=== PATIENT | male | born 1965 | race American Indian/Alaskan Native ===

== ENCOUNTER 2021-06-27 09:32 | Inpatient (IN) | payer SELFPAY ==
--- NOTE | 2021-06-27 09:46 | Emergency Department Report ---
ED Neuro Deficit HPI - General Stated Complaint: LEFT SIDED WEAKDNESS Time Seen by Provider: 06/27/21 09:38 Source: patient, EMS Mode of arrival: Stretcher Limitations: No Limitations - History of Present Illness Initial Comments: CC: left facial droop, left arm weakness HPI: This is a 55 yo male without significant past medical history who presents with left facial droop and left arm weakness. Patient recalls getting to up at 3 am to use the bathroom. He awakened at 6 am with weakness. He had difficulty getting out of bed. He noticed left arm weakness at that time. Patient arrived via EMS. CODE stroke activated prior to patient' arrival once EMS report received. Systolic blood pressure 191 mmHg via EMS. Patient is right hand dominant. No history of HTN. He has not received medical care in quite some time. No significant family medical history. His father lived until his 80's without significant medical illness. Patient moved from [facility] to the in 2002. 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 -: This afternoon Location: left face, left arm Presenting Symptoms: Present: Weak/Paralyzed One Side, Altered Mental Status Place: home Severity: moderate Quality: weak Improves With: none Worsens With: none On Anticoagulants: No Context: other (Awakened with symptoms) Associated Symptoms: denies other symptoms Treatments Prior to Arrival: other (EMS transport) - Related Data Home Medications: Previous Rx's Medication Instructions Recorded Last Taken Type Cyclobenzaprine [Flexeril] 10 mg PO TID PRN #20 tablet 11/17/15 Unknown Rx Ibuprofen [Motrin 800 MG tab] 800 mg PO Q8HR PRN #30 tablet 11/17/15 Unknown Rx Allergies/Adverse Reactions: Allergies Allergy/AdvReac Type Severity Reaction Status Date / Time No Known Allergies Allergy Verified 11/16/15 12:24 ED Review of Systems ROS: Stated complaint: LEFT SIDED WEAKDNESS Other details as noted in HPI Comment: All other systems reviewed and negative Constitutional: denies: chills, fever, malaise Respiratory: denies: cough, shortness of breath Cardiovascular: denies: chest pain Gastrointestinal: denies: abdominal pain, nausea, vomiting Neurological: denies: headache, weakness, numbness ED Past Medical Hx - Past Medical History Previous Medical History?: No - Surgical History Past Surgical History?: No - Family History Family history: no significant - Social History Smoking Status: Never Smoker Substance Use Type: Alcohol, Other - Medications Home Medications: Home Medications Medication Instructions Recorded Confirmed Last Taken Type Cyclobenzaprine [Flexeril] 10 mg PO TID PRN #20 tablet 11/17/15 Unknown Rx Ibuprofen [Motrin 800 MG tab] 800 mg PO Q8HR PRN #30 tablet 11/17/15 Unknown Rx ED Neuro Physical Exam - General Limitations: No Limitations General appearance: alert, in no apparent distress Suspected Stroke: Yes - Head Head exam: Present: atraumatic, normocephalic - Eye Eye exam: Present: normal appearance - ENT ENT exam: Present: mucous membranes moist - Neck Neck exam: Present: normal inspection, full ROM - Respiratory Respiratory exam: Present: normal lung sounds bilaterally. Absent: respiratory distress, wheezes, rales, rhonchi - Cardiovascular Cardiovascular Exam: Present: regular rate, normal rhythm, normal heart sounds. Absent: systolic murmur, diastolic murmur, rubs, gallop - GI/Abdominal GI/Abdominal exam: Present: soft, normal bowel sounds. Absent: distended, tenderness, guarding, rebound - Rectal Rectal exam: Present: deferred - Extremities Exam Extremities exam: Present: normal inspection - Back Exam Back exam: Present: normal inspection - Neurological Exam Neurological exam: Present: alert, oriented X3 - NIHSS Assessment Interval: Baseline 1a. Level of Consciousness: alert/keenly responsive 1b. LOC Questions: answers both correctly 1c. LOC Commands: performs tasks correctly 2. Best Gaze: normal 3. Visual: partial hemianopia 4. Facial Palsy: normal symmetrical movement 5b. Motor Arm Right: no drift 5a. Motor Arm Left: some gravity effort 6a. Motor Leg Left: no drift 6b. Motor Leg Right: no drift 7. Limb Ataxia: absent 8. Sensory: normal 9. Best Language: no aphasia 10. Dysarthria: normal 11. Extinction/Inattention: no abnormality Total Score: 3 Stroke Severity: Minor Stroke - Psychiatric Psychiatric exam: Present: normal affect, normal mood - Skin Skin exam: Present: warm, dry, intact, normal color. Absent: rash ED Course Vital Signs 06/27/21 06/27/21 06/27/21 11:06 11:16 11:30 Pulse Rate 83 85 81 Respiratory 21 17 16 Rate Blood Pressure 157/94 157/101 O2 Sat by Pulse 94 100 100 Oximetry 06/27/21 06/27/21 06/27/21 11:46 12:00 12:16 Pulse Rate 90 86 77 Respiratory 14 19 12 Rate Blood Pressure 157/101 156/107 156/107 O2 Sat by Pulse 100 97 100 Oximetry 06/27/21 12:30 Pulse Rate 81 Respiratory 25 H Rate Blood Pressure 157/112 O2 Sat by Pulse 100 Oximetry - Reevaluation(s) Reevaluation #1: 06/27/21 09:53 I discussed case with neurologist. He agreed that last known well time 3 AM. He has not a candidate for TPA. - Lab Data Result diagrams: 06/27/21 10:06 06/27/21 10:06 Lab Results 06/27/21 06/27/21 06/27/21 Range/Units 10:06 10:06 11:05 WBC 4.9 (4.5-11.0) K/mm3 RBC 4.74 (3.65-5.03) M/mm3 Hgb 11.7 L (11.8-15.2) gm/dl Hct 36.9 (35.5-45.6) % MCV 78 L (84-94) fl MCH 25 L (28-32) pg MCHC 32 (32-34) % RDW 14.6 (13.2-15.2) % Plt Count 198 (140-440) K/mm3 Lymph % (Auto) 28.8 (13.4-35.0) % Divide % (Auto) 7.1 (0.0-7.3) % Eos % (Auto) 0.8 (0.0-4.3) % Baso % (Auto) 0.8 (0.0-1.8) % Lymph # (Auto) 1.4 (1.2-5.4) K/mm3 Divide # (Auto) 0.4 (0.0-0.8) K/mm3 Eos # (Auto) 0.0 (0.0-0.4) K/mm3 Baso # (Auto) 0.0 (0.0-0.1) K/mm3 Seg Neutrophils % 62.5 (40.0-70.0) % Seg Neutrophils # 3.1 (1.8-7.7) K/mm3 PT 13.1 (12.2-14.9) Sec. INR 0.89 (0.87-1.13) APTT 25.8 (24.2-36.6) Sec. Thrombin Time 18.6 (15.1-19.6) Sec. Sodium 138 (137-145) mmol/L Potassium 3.6 (3.6-5.0) mmol/L Chloride 102.8 (98-107) mmol/L Carbon Dioxide 25 (22-30) mmol/L Anion Gap 14 mmol/L BUN 12 (9-20) mg/dL Creatinine 1.2 (0.8-1.3) mg/dL Estimated GFR > 60 ml/min BUN/Creatinine Ratio 10 % Glucose 138 H (75-100) mg/dL Calcium 8.5 (8.4-10.2) mg/dL Total Bilirubin 0.40 (0.1-1.2) mg/dL AST 19 (5-40) units/L ALT 26 (7-56) units/L Alkaline Phosphatase 85 (35-129) units/L Troponin T < 0.010 (0.00-0.029) ng/mL NT-Pro-B Natriuret Pep 46.41 (0-900) pg/mL Total Protein 7.0 (6.3-8.2) g/dL Albumin 3.9 (3.9-5) g/dL Albumin/Globulin Ratio 1.3 % - EKG Data -: EKG Interpreted by Nm EKG shows normal: sinus rhythm Rate: normal Interpretation: nonspecific ST-T wave elissa 06/27/21 11:00 EKG obtained 1020 Normal sinus rhythm rate 85 bpm normal axis normal intervals no ST elevation T wave inversion in the lateral leads - Radiology Data Radiology results: report reviewed Patient Name: DELIA BABB Gender: Male Date of : January 20, 1961 Referring Provider: FRANCISCO HYDE Organization: [facility] Accession Number: [id number] Requested Date: June 27, 2021 08:42 Report Status: Final Requested Procedure: 1 Procedure Description: XR chest 1V ap Modality: XR Findings Reporting MD: Alek Darden Dictation Time: June 27, 2021 08:45 Tuber Machine Operator: Not available Territory Outside Sales Manager Date: CHEST 1 VIEW 06/27/2021 9:29 AM INDICATION / CLINICAL INFORMATION: Chest Pain. COMPARISON: 06/15/2021 FINDINGS: SUPPORT DEVICES: None. HEART / MEDIASTINUM: Stable cardiomegaly. LUNGS / PLEURA: Bilateral interstitial prominence and perihilar fullness. Essence B lines. No pneumothorax. ADDITIONAL FINDINGS: No significant additional findings. IMPRESSION: 1. Cardiomegaly and pulmonary edema. Signer Name: Alek Darden MD Signed: 06/27/2021 8:45 AM Workstation Name: [id number] Patient Name: YURY STERLING Gender: Male Date of : 1965 Referring Provider: FRANCISCO HYDE Organization: [facility] Accession Number: [id number] Requested Date: June 27, 2021 09:39 Report Status: Final Requested Procedure: 1 Procedure Description: CT head/brain wo con Modality: CT Findings Reporting MD: Marcin He Dictation Time: June 27, 2021 09:24 Tuber Machine Operator: Not available Territory Outside Sales Manager Date: CT BRAIN: 06/27/2021 INDICATION / CLINICAL INFORMATION: Left facial droop left arm weakness. COMPARISON: None available. FINDINGS: BRAIN/INTRACRANIAL STRUCTURES: Unenhanced CT images of the brain demonstrate no evidence of acute abnormality. Ventricles and sulci are normal in size and shape. There is no CT evidence of acute ischemic injury, hemorrhage, or mass. There are no abnormal extra-axial fluid collections. EXTRACRANIAL STRUCTURES: Unremarkable. IMPRESSION: No acute abnormality All CT scans at this location are performed using dose reduction to ALARA by means of automated exposure control. Signer Name: Marcin He MD Signed: 06/27/2021 9:24 AM Workstation Name: [id number] Patient Name: YURY STERLING Gender: Male Date of : 1965 Referring Provider: FRANCISCO HYDE Organization: [facility] Accession Number: [id number] Requested Date: June 27, 2021 09:39 Report Status: Final Requested Procedure: 1 Procedure Description: CT angio neck Modality: CT Findings Reporting MD: Marcin He Dictation Time: June 27, 2021 09:27 Tuber Machine Operator: Not available Territory Outside Sales Manager Date: CTA NECK WITH CONTRAST 06/27/2021 INDICATION / CLINICAL INFORMATION: Left facial droop left arm weakness. COMPARISON: None. TECHNIQUE: Routine CTA of the neck is performed. 3-D/MIP reformats were postprocessed. Percentage stenosis is determined by direct quantitative measurements of diseased internal carotid artery diameter compared with normal distal internal carotid artery reference segments or by criteria similar to NASCET where applicable. All CT scans at this location are performed using CT dose reduction for ALARA by means of automated exposure control. CONTRAST: 100 ml of Omnipaque 350 FINDINGS: Carotid bifurcations: There is no evidence of carotid bifurcation stenosis. Carotid arteries: No significant abnormality. Cervical vertebral arteries: No significant abnormality. Aortic arch: No significant abnormality. None. IMPRESSION: No significant abnormality. No CT angiographic correlate for left facial droop and left arm weakness. Signer Name: Marcin He MD Signed: 06/27/2021 9:27 AM Workstation Name: [id number] Patient Name: YURY STERLING Gender: Male Date of : 1965 Referring Provider: FRANCISCO HYDE Organization: [facility] Accession Number: [id number] Requested Date: June 27, 2021 09:39 Report Status: Final Requested Procedure: 1 Procedure Description: CT angio head Modality: CT Findings Reporting MD: Marcin He Dictation Time: June 27, 2021 09:28 Tuber Machine Operator: Not available Territory Outside Sales Manager Date: CTA HEAD WITH CONTRAST 06/27/2021 HISTORY: Left facial droop left arm weakness. COMPARISON: None. TECHNIQUE: All CT scans at this location are performed using CT dose reduction for ALARA by means of automated exposure control.. 3-D/MIP reformats postprocessed. Percentage stenosis is determined by direct quantitative measurements of diseased internal carotid artery diameter compared with normal distal internal carotid artery reference segments or by criteria similar to NASCET where applicable. CONTRAST: 100 ml of Omnipaque 350 FINDINGS: CTA HEAD: Intracranial vertebral arteries: No significant abnormality. Basilar artery: No significant abnormality. Posterior cerebral arteries: No significant abnormality. Intracranial internal carotid arteries: No significant abnormality. Anterior cerebral arteries: No significant abnormality. Middle cerebral arteries: No significant abnormality. Dural venous sinuses:Not optimally opacified. No significant abnormality. Additional findings: None. IMPRESSION: 1. No significant abnormality. Signer Name: Marcin He MD Signed: 06/27/2021 9:28 AM Workstation Name: [email or web address] - Medical Decision Making Acute CVA: Patient is not a candidate for TPA. Last known well time 3 AM. NIH stroke scale 3 No evidence of large vessel occlusion on CT angio head chest. CBC chemistry within normal limits. Troponin negative. PT PTT within normal limits. BNP within normal limits. Critical care attestation.: If time is entered above; I have spent that time in minutes in the direct care of this critically ill patient, excluding procedure time. ED Disposition Clinical Impression: Acute CVA (cerebrovascular accident) Disposition: ADMITTED INPATIENT Is pt being admited?: Yes Does the pt Need Aspirin: No Condition: Stable
[2021-06-27 10:26] LABS: Basophils % (Auto) 0.8 % (0.0-1.8); Eosinophils % (Auto) 0.8 % (0.0-4.3); Hematocrit 36.9 % (35.5-45.6); Hemoglobin 11.7 gm/dl (11.8-15.2); Lymphocytes # (Auto) 1.4 K/mm3 (1.2-5.4); Lymphocytes % (Auto) 28.8 % (13.4-35.0); Mean Corpuscular HGB Conc 32 % (32-34); Mean Corpuscular Volume 78 fl (84-94); Monocytes # (Auto) 0.4 K/mm3 (0.0-0.8); Monocytes % (Auto) 7.1 % (0.0-7.3); Platelet Count 198 K/mm3 (140-440); Red Blood Count 4.74 M/mm3 (3.65-5.03); Red Cell Distribution Width 14.6 % (13.2-15.2)
--- NOTE | 2021-06-27 10:29 | Cat Scan Report ---
CT BRAIN: 06/27/2021 INDICATION / CLINICAL INFORMATION: Left facial droop left arm weakness. COMPARISON: None available. FINDINGS: BRAIN/INTRACRANIAL STRUCTURES: Unenhanced CT images of the brain demonstrate no evidence of acute abn ormality. Ventricles and sulci are normal in size and shape. There is no CT evidence of acute ischemic injury, hemorrhage, or mass. There are no abnormal extra-ax ial fluid collections. EXTRACRANIAL STRUCTURES: Unremarkable. IMPRESSION: No acute abnormality All CT scans at this location are performed using dose reduction to ALARA by means of automated expos ure control. Signer Name: Marcin He MD Signed: 06/27/2021 10:24 AM Workstation Name: [id number]
--- NOTE | 2021-06-27 10:31 | Cat Scan Report ---
CTA NECK WITH CONTRAST 06/27/2021 INDICATION / CLINICAL INFORMATION: Left facial droop left arm weakness. COMPARISON: None. TECHNIQUE: Routine CTA of the neck is performed. 3-D/MIP reformats were postprocessed. Percentage st enosis is determined by direct quantitative measurements of diseased internal carotid artery diameter compared with normal distal internal carotid artery reference segments or by criteria similar to BROOK CET where applicable. All CT scans at this location are performed using CT dose reduction for ALARA b y means of automated exposure control. CONTRAST: 100 ml of Omnipaque 350 FINDINGS: Carotid bifurcations: There is no evidence of carotid bifurcation stenosis. Carotid arteries: No significant abnormality. Cervical vertebral arteries: No significant abnormality. Aortic arch: No significant abnormality. None. IMPRESSION: No significant abnormality. No CT angiographic correlate for left facial droop and left arm weakness. Signer Name: Marcin He MD Signed: 06/27/2021 10:27 AM Workstation Name: [id number]
--- NOTE | 2021-06-27 10:32 | Cat Scan Report ---
CTA HEAD WITH CONTRAST 06/27/2021 HISTORY: Left facial droop left arm weakness. COMPARISON: None. TECHNIQUE: All CT scans at this location are performed using CT dose reduction for ALARA by means of automated exposure control.. 3-D/MIP reformats postprocessed. Percentage stenosis is determined by d irect quantitative measurements of diseased internal carotid artery diameter compared with normal dis refugio internal carotid artery reference segments or by criteria similar to NASCET where applicable. CONTRAST: 100 ml of Omnipaque 350 FINDINGS: CTA HEAD: Intracranial vertebral arteries: No significant abnormality. Basilar artery: No significant abnormality. Posterior cerebral arteries: No significant abnormality. Intracranial internal carotid arteries: No significant abnormality. Anterior cerebral arteries: No significant abnormality. Middle cerebral arteries: No significant abnormality. Dural venous sinuses:Not optimally opacified. No significant abnormality. Additional findings: None. IMPRESSION: 1. No significant abnormality. Signer Name: Marcin He MD Signed: 06/27/2021 10:28 AM Workstation Name: [id number]
--- NOTE | 2021-06-27 10:42 | Consultation ---
History of Present Illness History of present illness: [facility] Consult Note # Demographics Consult Type: Acute Stroke Level 1 (0-4.5 hrs) Patient Location: Emergency Room First Name: Roni Last Name: Gilbert Date of : 1965 Age: 55 Gender: Female Facility: [facility] Time of Initial Page ( Time): 06/27/2021, 09:17 Time of Return Call ( Time): 06/27/2021, 09:19 # HPI History: 55M presents after fall with speech difficulty and left arm weakness. [id number] when he woke up to use restroom. # Scores Time of exam and NIHSS ( Time): 06/27/2021, 09:42 Level of Consciousness 1a: [0] = Alert; keenly responsive LOC Questions 1b: [0] = Answers both questions correctly LOC Commands 1c: [0] = Performs both tasks correctly Best Gaze 2: [0] = Normal Visual 3: [0] = No visual loss Facial Palsy 4: [0] = Normal symmetrical movements Motor Arm Left 5a: [0] = No drift Motor Arm Right 5b: [0] = No drift Motor Leg Left 6a: [1] = Drift Motor Leg Right 6b: [0] = No drift Limb Ataxia 7: [0] = Absent Sensory 8: [1] = [id number] sensory loss Best Language 9: [0] = No aphasia Dysarthria 10: [0] = Normal Extinction and Inattention 11: [0] = No abnormality NIHSS Total: 2 # Data Head CT: no bleed per radiologist read CTA Head: no large vessel occlusion per radiologist read CTA Neck: patent vessels per radiologist read # Assessment Impression: Ischemic Stroke (Acute) # Plan Thrombolytic/Intervention: NOT IV Thrombolysis or IA Intervention candidate Thrombolytic Exclusion: > 4.5 hours Intraarterial Exclusion: no large vessel occlusion (LVO) non-disabling Target Blood Pressure: SBP < 220 DBP < 105 Labs: hemoglobin A1c lipid panel Imaging: (urgency: routine): MRI Brain without contrast Diagnostic Test: echo with bubble study Therapy/Evaluation: PT/OT evaluation Medication: ASA 325 x1 then 81 daily Plavix 300 x1 then 75 daily x3 weeks (3 weeks DAPT, then ASA monotherapy) Atorvastatin 80, then tailor daily dose to LDL < 70 goal DVT Prophylaxis: SCD chemical DVT prophylaxis Other: consult on-site neurology service for full work-up and evaluation recommendations permissive hypertension telemetry monitoring I have discussed my recommendations with the referring provider Disposition: admit # Logistics Telemedicine: Interactive 2 way audio and visual telecommunication technology was utilized during this visit Electronically signed at 06/27/2021 10:41 (Eastern Time) by J Luis Burch MD Medications and Allergies Allergies Allergy/AdvReac Type Severity Reaction Status Date / Time No Known Allergies Allergy Verified 11/16/15 12:24 Home Medications Medication Instructions Recorded Confirmed Last Taken Type Cyclobenzaprine [Flexeril] 10 mg PO TID PRN #20 tablet 11/17/15 Unknown Rx Ibuprofen [Motrin 800 MG tab] 800 mg PO Q8HR PRN #30 tablet 11/17/15 Unknown Rx Results - Laboratory Findings CBC and BMP: 06/27/21 10:06 Abnormal Lab Findings: Abnormal Labs 06/27/21 10:06 Hgb 11.7 L MCV 78 L MCH 25 L
--- NOTE | 2021-06-27 10:50 | XRay Report ---
CHEST 1 VIEW 06/27/2021 9:36 AM INDICATION / CLINICAL INFORMATION: Stroke symptoms. COMPARISON: None available. FINDINGS: SUPPORT DEVICES: None. HEART / MEDIASTINUM: No significant abnormality. LUNGS / PLEURA: No significant pulmonary or pleural abnormality. No pneumothorax. ADDITIONAL FINDINGS: No significant additional findings. IMPRESSION: 1. No acute findings. Signer Name: Alek Darden MD Signed: 06/27/2021 10:46 AM Workstation Name: [id number]
[2021-06-27 10:59] LABS: Alanine Aminotransferase 26 units/L (7-56); Albumin 3.9 g/dL (3.9-5); BUN/Creatinine Ratio 10; Blood Urea Nitrogen 12 mg/dL (9-20); Calcium 8.5 mg/dL (8.4-10.2); Hemolysis Index 3
[2021-06-27 11:23] LABS: INR 0.89 (0.87-1.13); Partial Thromboplastin Time 25.8 Sec. (24.2-36.6)
[2021-06-27 11:24] LABS: Thrombin Time 18.6 Sec. (15.1-19.6)
[2021-06-27] MEDS ORDERED: ASPIRIN 325 MG TAB PO ONE (14:33)
[2021-06-27] MEDS ORDERED: ACETAMINOPHEN 325 MG TAB PO PRN (17:26)
[2021-06-27] MEDS ORDERED: ONDANSETRON 4 MG/2 ML INJ IV PRN (17:26)
--- NOTE | 2021-06-27 17:26 | History and Physical Report ---
History of Present Illness Date of examination: 06/27/21 Date of admission: 06/27/2019 Chief complaint: Left upper extremity weakness and left lower extremity weakness since 3 AM in the morning History of present illness: 54-year-old male without significant past medical history presents with a left facial droop and left arm weakness. Patient woke up at 3 AM Tried to use the bathroom he had difficulty getting out of bed and walking to the bathroom. Apparently fell while going to the lab since 6 AM patient noted weakness in the left upper extremity and left lower extremity. Patient had difficulty walking. Patient came by EMS and code stroke was activated. Systolic blood pressure was high as per EMS in the range of 190s. No significant past medical history. Has not seen any physician in the last few years. 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 No exacerbating or relieving factors. Past History Past Medical History: hypertension Past Surgical History: No surgical history Social history: lives with family, full code. denies: smoking, alcohol abuse Family history: hypertension Review of Systems ROS: Stated complaint: LEFT SIDED WEAKDNESS Other details as noted in HPI Comment: All other systems reviewed and negative Constitutional: denies: chills, fever, malaise Respiratory: denies: cough, shortness of breath Cardiovascular: denies: chest pain Gastrointestinal: denies: abdominal pain, nausea, vomiting Neurological: denies: headache, weakness, numbness Past History Social history: smoking, alcohol abuse Medications and Allergies Allergies Allergy/AdvReac Type Severity Reaction Status Date / Time No Known Allergies Allergy Verified 11/16/15 12:24 Home Medications Medication Instructions Recorded Confirmed Last Taken Type Cyclobenzaprine [Flexeril] 10 mg PO TID PRN #20 tablet 11/17/15 Unknown Rx Ibuprofen [Motrin 800 MG tab] 800 mg PO Q8HR PRN #30 tablet 11/17/15 Unknown Rx Exam - Constitutional Vitals: Temp Pulse Resp BP Pulse Ox 85 14 151/75 83 L 06/27/21 14:00 06/27/21 14:00 06/27/21 14:00 06/27/21 14:00 General appearance: Present: no acute distress, well-nourished - EENT Eyes: Present: PERRL ENT: hearing intact, clear oral mucosa - Neck Neck: Present: supple, normal ROM - Respiratory Respiratory effort: normal Respiratory: bilateral: CTA - Cardiovascular Heart rate: 78 Rhythm: regular Heart Sounds: Present: S1 & S2. Absent: rub, click - Extremities Extremities: pulses symmetrical, No edema Peripheral Pulses: within normal limits - Abdominal General gastrointestinal: Present: soft, non-tender, non-distended, normal bowel sounds Male genitourinary: Present: normal - Integumentary Integumentary: Present: clear, warm, dry - Musculoskeletal Musculoskeletal: left sided weakness - Psychiatric Psychiatric: appropriate mood/affect, intact judgment & insight, memory intact, cooperative - Neurologic Neurologic: CNII-XII intact (Left facial palsy), focal deficits (Left hemiparesis. Power is 3/5 power in both left upper extremity and left lower extremity.), gait normal (Circumduction gait) HEART Score - HEART Score History: Slightly suspicious Age: 45-65 Risk factors: 1-2 risk factors Troponin: Troponin T < 0.010 ng/mL (0.00-0.029) 06/27/21 10:06 Troponin: < normal limit - Critical Actions Critical Actions: 0-3 pts:0.9-1.7%risk of adverse cardiac event.Candidate for discharge Results - Labs CBC & Chem 7: 06/28/21 05:14 06/28/21 05:14 Labs: Laboratory Last Values WBC 4.9 K/mm3 (4.5-11.0) 06/27/21 10:06 RBC 4.74 M/mm3 (3.65-5.03) 06/27/21 10:06 Hgb 11.7 gm/dl (11.8-15.2) L 06/27/21 10:06 Hct 36.9 % (35.5-45.6) 06/27/21 10:06 MCV 78 fl (84-94) L 06/27/21 10:06 MCH 25 pg (28-32) L 06/27/21 10:06 MCHC 32 % (32-34) 06/27/21 10:06 RDW 14.6 % (13.2-15.2) 06/27/21 10:06 Plt Count 198 K/mm3 (140-440) 06/27/21 10:06 Lymph % (Auto) 28.8 % (13.4-35.0) 06/27/21 10:06 [place] % (Auto) 7.1 % (0.0-7.3) 06/27/21 10:06 Eos % (Auto) 0.8 % (0.0-4.3) 06/27/21 10:06 Baso % (Auto) 0.8 % (0.0-1.8) 06/27/21 10:06 Lymph # (Auto) 1.4 K/mm3 (1.2-5.4) 06/27/21 10:06 [place] # (Auto) 0.4 K/mm3 (0.0-0.8) 06/27/21 10:06 Eos # (Auto) 0.0 K/mm3 (0.0-0.4) 06/27/21 10:06 Baso # (Auto) 0.0 K/mm3 (0.0-0.1) 06/27/21 10:06 Seg Neutrophils % 62.5 % (40.0-70.0) 06/27/21 10:06 Seg Neutrophils # 3.1 K/mm3 (1.8-7.7) 06/27/21 10:06 PT 13.1 Sec. (12.2-14.9) 06/27/21 11:05 INR 0.89 (0.87-1.13) 06/27/21 11:05 APTT 25.8 Sec. (24.2-36.6) 06/27/21 11:05 Thrombin Time 18.6 Sec. (15.1-19.6) 06/27/21 11:05 Sodium 138 mmol/L (137-145) 06/27/21 10:06 Potassium 3.6 mmol/L (3.6-5.0) 06/27/21 10:06 Chloride 102.8 mmol/L (98-107) 06/27/21 10:06 Carbon Dioxide 25 mmol/L (22-30) 06/27/21 10:06 Anion Gap 14 mmol/L 06/27/21 10:06 BUN 12 mg/dL (9-20) 06/27/21 10:06 Creatinine 1.2 mg/dL (0.8-1.3) 06/27/21 10:06 Estimated GFR > 60 ml/min 06/27/21 10:06 BUN/Creatinine Ratio 10 % 06/27/21 10:06 Glucose 138 mg/dL (75-100) H 06/27/21 10:06 Calcium 8.5 mg/dL (8.4-10.2) 06/27/21 10:06 Total Bilirubin 0.40 mg/dL (0.1-1.2) 06/27/21 10:06 AST 19 units/L (5-40) 06/27/21 10:06 ALT 26 units/L (7-56) 06/27/21 10:06 Alkaline Phosphatase 85 units/L (35-129) 06/27/21 10:06 Troponin T < 0.010 ng/mL (0.00-0.029) 06/27/21 10:06 NT-Pro-B Natriuret Pep 46.41 pg/mL (0-900) 06/27/21 10:06 Total Protein 7.0 g/dL (6.3-8.2) 06/27/21 10:06 Albumin 3.9 g/dL (3.9-5) 06/27/21 10:06 Albumin/Globulin Ratio 1.3 % 06/27/21 10:06 Short CBC 06/27/21 06/28/21 Range/Units 10:06 05:14 WBC 4.9 6.2 (4.5-11.0) K/mm3 Hgb 11.7 L 12.7 (11.8-15.2) gm/dl Hct 36.9 40.3 (35.5-45.6) % Plt Count 198 223 (140-440) K/mm3 BMP 06/27/21 06/28/21 10:06 05:14 Sodium 138 143 Potassium 3.6 4.1 Chloride 102.8 106.5 Carbon Dioxide 25 24 BUN 12 11 Creatinine 1.2 1.2 Glucose 138 H 118 H Calcium 8.5 8.8 Cardiac Enzymes 06/27/21 Range/Units 10:06 Troponin T < 0.010 (0.00-0.029) ng/mL Liver Function 06/27/21 06/28/21 Range/Units 10:06 05:14 Total Bilirubin 0.40 0.50 (0.1-1.2) mg/dL AST 19 21 (5-40) units/L ALT 26 26 (7-56) units/L Alkaline Phosphatase 85 89 (35-129) units/L Albumin 3.9 4.0 (3.9-5) g/dL - Imaging and Cardiology EKG: report reviewed (Heart rate of 85/min left atrial enlargement abnormal. T wave inversions in lateral leads) Assessment and Plan Advance Directives: Yes (Full code) VTE prophylaxis?: Chemical Plan of care discussed with patient/family: Yes - Patient Problems (1) Acute CVA (cerebrovascular accident) Current Visit: Yes Status: Acute Plan to address problem: CVA protocol MRI brain and echocardiogram requested Physical therapy and Occupational Therapy requested Neurology consult requested Patient is outside the window for TPA Aspirin 325 mg to be initiated High-dose statins initiated Defer Plavix to the primary team (2) Hypertension Current Visit: Yes Status: Acute Qualifiers: Hypertension type: primary hypertension Qualified Code(s): I10 - Essential (primary) hypertension Plan to address problem: Newly diagnosed hypertension Patient never had hypertension for long time Did not seek any medical attention for the last few years Patient initiated on losartan and Coreg IV hydralazine as needed (3) Hyperglycemia Current Visit: Yes Status: Acute Plan to address problem: Borderline Check hemoglobin A1c Metformin if necessary (4) Anemia Current Visit: Yes Status: Chronic Qualifiers: Anemia type: iron deficiency Plan to address problem: Microcytosis present Check iron level (5) DVT prophylaxis Current Visit: Yes Status: Acute Plan to address problem: On heparin and GI prophylaxis (6) Advance care planning Current Visit: Yes Status: Acute Plan to address problem: Disease education conducted, care plan discussed, diagnosis discussed, prognosis discussed. Patient is full code. Patient acknowledges understanding and agreement with care plan. +30 minutes.
[2021-06-27] MEDS ORDERED: METOCLOPRAMIDE 10 MG/2 ML INJ IV PRN (17:27)
[2021-06-27] MEDS ORDERED: oxyCODONE /ACETAMINOPHEN 5-325MG TAB PO PRN (17:27)
[2021-06-27] MEDS ORDERED: HYDROmorphone 1 MG/1 ML INJ IV PRN (17:27)
[2021-06-27] MEDS ORDERED: SODIUM CHLORIDE 0.9% 1000 ML 1,000 ML IV SCH (17:30)
[2021-06-27] MEDS: HEPARIN 5,000 UNIT/1 ML VIAL SUB-Q SCH (22:52)
[2021-06-28 05:51] LABS: Basophils % (Auto) 0.7 % (0.0-1.8); Eosinophils # (Auto) 0.1 K/mm3 (0.0-0.4); Eosinophils % (Auto) 1.1 % (0.0-4.3); Hematocrit 40.3 % (35.5-45.6); Hemoglobin 12.7 gm/dl (11.8-15.2); Lymphocytes # (Auto) 2.5 K/mm3 (1.2-5.4); Lymphocytes % (Auto) 40.6 % (13.4-35.0); Mean Corpuscular HGB Conc 32 % (32-34); Mean Corpuscular Volume 78 fl (84-94); Monocytes # (Auto) 0.5 K/mm3 (0.0-0.8); Monocytes % (Auto) 7.5 % (0.0-7.3); Platelet Count 223 K/mm3 (140-440); Red Blood Count 5.16 M/mm3 (3.65-5.03); Red Cell Distribution Width 14.8 % (13.2-15.2)
[2021-06-28 06:04] LABS: Alanine Aminotransferase 26 units/L (7-56); BUN/Creatinine Ratio 9; Blood Urea Nitrogen 11 mg/dL (9-20); Calcium 8.8 mg/dL (8.4-10.2); Hemolysis Index 2
[2021-06-28] MEDS ORDERED: hydrALAZINE 20 MG/1 ML INJ IV PRN (06:33)
[2021-06-28] MEDS: HEPARIN 5,000 UNIT/1 ML VIAL SUB-Q SCH ×2 (09:19→21:31)
[2021-06-28] MEDS ORDERED: carvediloL 6.25 MG TAB PO SCH (10:00)
[2021-06-28] MEDS ORDERED: LOSARTAN 50 MG TAB PO SCH (10:00)
--- NOTE | 2021-06-28 10:00 | Electrocardiograph Report ---
[facility] Test Date: 2021-06-27 Test Time: 10:20:09 Pat Name: YURY STERLING Department: Room: A474 Gender: M Combine Driver: JANKI : 1965 Requested By: FRANCISCO HYDE Order Number: [id number] Reading MD: Arturo Forman Measurements Intervals [place] Rate: 85 P: 55 ID: [id number] QRS: 20 QRSD: 83 T: 129 QT: 360 QTc: 428 Interpretive Statements Sinus rhythm Probable left atrial enlargement Abnormal T, consider ischemia, lateral leads No previous ECG available for comparison Electronically Signed On 06-28-2021 9:59:51 EST by Arturo Forman
--- NOTE | 2021-06-28 18:33 | Progress Note ---
Hospitalist Physical - Constitutional Vitals: Temp Pulse Resp BP Pulse Ox 98.1 F 81 18 146/76 97 06/28/21 16:41 06/28/21 16:41 06/28/21 16:41 06/28/21 16:41 06/28/21 16:41 General appearance: Present: no acute distress, well-nourished HEART Score - HEART Score Age: 45-65 Risk factors: 1-2 risk factors Troponin: Troponin T < 0.010 ng/mL (0.00-0.029) 06/27/21 10:06 Troponin: < normal limit - Critical Actions Critical Actions: 0-3 pts:0.9-1.7%risk of adverse cardiac event.Candidate for discharge Results - Labs CBC & Chem 7: 06/28/21 05:14 06/28/21 05:14 Labs: Laboratory Last Values WBC 6.2 K/mm3 (4.5-11.0) 06/28/21 05:14 RBC 5.16 M/mm3 (3.65-5.03) H 06/28/21 05:14 Hgb 12.7 gm/dl (11.8-15.2) 06/28/21 05:14 Hct 40.3 % (35.5-45.6) 06/28/21 05:14 MCV 78 fl (84-94) L 06/28/21 05:14 MCH 25 pg (28-32) L 06/28/21 05:14 MCHC 32 % (32-34) 06/28/21 05:14 RDW 14.8 % (13.2-15.2) 06/28/21 05:14 Plt Count 223 K/mm3 (140-440) 06/28/21 05:14 Lymph % (Auto) 40.6 % (13.4-35.0) H 06/28/21 05:14 [place] % (Auto) 7.5 % (0.0-7.3) H 06/28/21 05:14 Eos % (Auto) 1.1 % (0.0-4.3) 06/28/21 05:14 Baso % (Auto) 0.7 % (0.0-1.8) 06/28/21 05:14 Lymph # (Auto) 2.5 K/mm3 (1.2-5.4) 06/28/21 05:14 [place] # (Auto) 0.5 K/mm3 (0.0-0.8) 06/28/21 05:14 Eos # (Auto) 0.1 K/mm3 (0.0-0.4) 06/28/21 05:14 Baso # (Auto) 0.0 K/mm3 (0.0-0.1) 06/28/21 05:14 Seg Neutrophils % 50.1 % (40.0-70.0) 06/28/21 05:14 Seg Neutrophils # 3.1 K/mm3 (1.8-7.7) 06/28/21 05:14 PT 13.1 Sec. (12.2-14.9) 06/27/21 11:05 INR 0.89 (0.87-1.13) 06/27/21 11:05 APTT 25.8 Sec. (24.2-36.6) 06/27/21 11:05 Thrombin Time 18.6 Sec. (15.1-19.6) 06/27/21 11:05 Sodium 143 mmol/L (137-145) 06/28/21 05:14 Potassium 4.1 mmol/L (3.6-5.0) 06/28/21 05:14 Chloride 106.5 mmol/L (98-107) 06/28/21 05:14 Carbon Dioxide 24 mmol/L (22-30) 06/28/21 05:14 Anion Gap 17 mmol/L 06/28/21 05:14 BUN 11 mg/dL (9-20) 06/28/21 05:14 Creatinine 1.2 mg/dL (0.8-1.3) 06/28/21 05:14 Estimated GFR > 60 ml/min 06/28/21 05:14 BUN/Creatinine Ratio 9 % 06/28/21 05:14 Glucose 118 mg/dL (75-100) H 06/28/21 05:14 Calcium 8.8 mg/dL (8.4-10.2) 06/28/21 05:14 Total Bilirubin 0.50 mg/dL (0.1-1.2) 06/28/21 05:14 AST 21 units/L (5-40) 06/28/21 05:14 ALT 26 units/L (7-56) 06/28/21 05:14 Alkaline Phosphatase 89 units/L (35-129) 06/28/21 05:14 Troponin T < 0.010 ng/mL (0.00-0.029) 06/27/21 10:06 NT-Pro-B Natriuret Pep 46.41 pg/mL (0-900) 06/27/21 10:06 Total Protein 7.4 g/dL (6.3-8.2) 06/28/21 05:14 Albumin 4.0 g/dL (3.9-5) 06/28/21 05:14 Albumin/Globulin Ratio 1.2 % 06/28/21 05:14 Active Medications - Current Medications Current Medications: Generic Name Dose Route Start Last Admin Trade Name Freq PRN Reason Stop Dose Admin Acetaminophen 650 mg 06/27/21 17:26 Acetaminophen 325 Mg Tab PO Q4H PRN Pain MILD(1-3)/Fever >100.5/WHITE Heparin Sodium (Porcine) 5,000 unit 06/27/21 22:00 06/28/21 09:19 Heparin 5,000 Unit/1 Ml Vial SUB-Q 5,000 unit Q12HR JYOTI Administration Hydralazine HCl 10 mg 06/28/21 06:33 Hydralazine 20 Mg/1 Ml Inj IV Q3H PRN Blood Pressure > 160/100 Ondansetron HCl 4 mg 06/27/21 17:26 Ondansetron 4 Mg/2 Ml Inj IV Q8H PRN Nausea And Vomiting Sodium Chloride 10 ml 06/27/21 22:00 06/28/21 09:19 Sodium Chloride 0.9% 10 Ml Flush Syringe IV 10 ml BID JYOTI Administration Sodium Chloride 10 ml 06/28/21 06:49 Sodium Chloride 0.9% 10 Ml Flush Syringe IV PRN PRN LINE FLUSH
[2021-06-29 05:20] LABS: Chol/HDL Ratio 3.56 %
--- NOTE | 2021-06-29 08:08 | Consultation ---
History of Present Illness Consult date: 06/29/21 Reason for Consult: Left side weakness and slurred speech History of present illness: Left upper extremity weakness and left lower extremity weakness since 3 AM in the morning History of present illness: 54-year-old male without significant past medical history presents with a left facial droop and left arm weakness. Patient woke up at 3 AM Tried to use the bathroom he had difficulty getting out of bed and walking to the bathroom. Apparently fell while going to the lab since 6 AM patient noted weakness in the left upper extremity and left lower extremity. Patient had difficulty walking. Patient came by EMS and code stroke was activated. Systolic blood pressure was high as per EMS in the range of 190s. No significant past medical history. Has not seen any physician in the last few years. 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 No exacerbating or relieving factors. he is doing better today left side weakness improved started on ASA and Lipitor MRI brain is pending PT is pending Echo is pending A1C#6.2 LDL#113 # Initial BP on presentation is Systolic #190 Past History Past Medical History: hypertension Past Surgical History: No surgical history Social history: lives with family, full code. denies: smoking, alcohol abuse Family history: hypertension Review of Systems ROS: Stated complaint: LEFT SIDED WEAKDNESS Other details as noted in HPI Comment: All other systems reviewed and negative Constitutional: denies: chills, fever, malaise Respiratory: denies: cough, shortness of breath Cardiovascular: denies: chest pain Gastrointestinal: denies: abdominal pain, nausea, vomiting Neurological: denies: headache, weakness, numbness Past History Social history: smoking, alcohol abuse Medications and Allergies Allergies Allergy/AdvReac Type Severity Reaction Status Date / Time No Known Allergies Allergy Verified 11/16/15 12:24 Home Medications Medication Instructions Recorded Confirmed Last Taken Type Cyclobenzaprine [Flexeril] 10 mg PO TID PRN #20 tablet 11/17/15 Unknown Rx Ibuprofen [Motrin 800 MG tab] 800 mg PO Q8HR PRN #30 tablet 11/17/15 Unknown Rx Past History Past Medical History: hypertension Past Surgical History: No surgical history Social history: smoking, alcohol abuse Family history: hypertension Medications and Allergies Allergies Allergy/AdvReac Type Severity Reaction Status Date / Time No Known Allergies Allergy Verified 11/16/15 12:24 Home Medications Medication Instructions Recorded Confirmed Last Taken Type Cyclobenzaprine [Flexeril] 10 mg PO TID PRN #20 tablet 11/17/15 Unknown Rx Ibuprofen [Motrin 800 MG tab] 800 mg PO Q8HR PRN #30 tablet 11/17/15 Unknown Rx Active Meds: Active Medications Acetaminophen (Acetaminophen 325 Mg Tab) 650 mg PO Q4H PRN PRN Reason: Pain MILD(1-3)/Fever >100.5/WHITE Heparin Sodium (Porcine) (Heparin 5,000 Unit/1 Ml Vial) 5,000 unit SUB-Q Q12HR [facility] Last Admin: 06/28/21 21:31 Dose: 5,000 unit Hydralazine HCl (Hydralazine 20 Mg/1 Ml Inj) 10 mg IV Q3H PRN PRN Reason: Blood Pressure > 160/100 Ondansetron HCl (Ondansetron 4 Mg/2 Ml Inj) 4 mg IV Q8H PRN PRN Reason: Nausea And Vomiting Sodium Chloride (Sodium Chloride 0.9% 10 Ml Flush Syringe) 10 ml IV BID [facility] Last Admin: 06/28/21 21:31 Dose: 10 ml Sodium Chloride (Sodium Chloride 0.9% 10 Ml Flush Syringe) 10 ml IV PRN PRN PRN Reason: LINE FLUSH Physical Examination - Vital Signs Vital Signs: Vital Signs Pulse Resp Pulse Ox 83 21 94 06/27/21 11:06 06/27/21 11:06 06/27/21 11:06 - Constitutional General appearance: comfortable - EENT EENT: Present: PERRL, mucous membranes moist - Respiratory Respiratory: Present: chest non-tender, lungs clear, rhonchi - Cardiovascular Cardiovascular: Present: regular rate, normal S1, normal S2 Extremities: Present: no peripheral edema bilatateraly, no clubbing, cyanosis - Gastrointestinal Gastrointestinal: Present: normoactive bowel sounds - Integumentary Integumentary: Present: normal - Neurologic Cranial nerve examination: PERRL, EOMI, intact Speech examination: intact Sensorimotor examination: intact Detailed motor examination: grossly full strength in - Level of Consciousness 1a. Level of Consciousness: alert/keenly responsive - LOC Questions 1b. LOC Questions: answers both correctly - LOC Command 1c. LOC Commands: performs tasks correctly - Best Gaze 2. Best Gaze: normal - Visual 3. Visual: no visual loss - Facial Palsy 4. Facial Palsy: normal symmetrical movement - Motor Arm 5a. Motor Arm Left: no drift 5b. Motor Arm Right: no drift - Motor Leg 6a. Motor Leg Left: drift 6b. Motor Leg Right: no drift - Limb Ataxia 7. Limb Ataxia: absent - Sensory 8. Sensory: normal - Best Language 9. Best Language: no aphasia - Dysarthria 10. Dysarthria: normal - Extinction and Inattention 11. Extinction/Inattention: no abnormality - Scoring Total Score: 1 Stroke Severity: Minor Stroke Results - Laboratory Findings CBC and BMP: 06/28/21 05:14 06/28/21 05:14 Abnormal Lab Findings: Abnormal Labs 06/27/21 06/27/21 06/28/21 10:06 10:06 05:14 RBC 5.16 H Hgb 11.7 L MCV 78 L 78 L MCH 25 L 25 L Lymph % (Auto) 40.6 H [place] % (Auto) 7.5 H Glucose 138 H Hemoglobin A1c 06/28/21 06/29/21 05:14 04:34 RBC Hgb MCV MCH Lymph % (Auto) [place] % (Auto) Glucose 118 H Hemoglobin A1c 6.2 H Assessment and Plan Assessment and Plan 54-year-old male without significant past medical history presents with a left facial droop and left arm weakness. Patient woke up at 3 AM Tried to use the bathroom he had difficulty getting out of bed and walking to the bathroom. Apparently fell while going to the lab since 6 AM patient noted weakness in the left upper extremity and left lower extremity. Patient had difficulty walking. Patient came by EMS and code stroke was activated. Systolic blood pressure was high as per EMS in the range of 190s. No significant past medical history. Has not seen any physician in the last few years. 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 No exacerbating or relieving factors. - Patient Problems # Acute CVA (cerebrovascular accident) -pt. is not candidate for TPA nor thrombectomy -CT brain is unremarkable -CTA brain and neck is unremarkable -started on ASA and Plavix -MRI brain is pending -LDL#113 -A1C#6.2 -Echo is pending -PT/ST evaluate -Initial NIh#2 today is# 0-1 # Hypertension -Newly diagnosed hypertension -Patient never had hypertension for long time -Did not seek any medical attention for the last few years -Patient initiated on losartan and Coreg -IV hydralazine as needed # Hyperglycemia -Borderline -Check hemoglobin A1c#6.2 -Metformin if necessary # Anemia -Microcytosis present -Check iron level # DVT prophylaxis -On heparin and GI prophylaxis Advance Directives: Yes (Full code) VTE prophylaxis?: Chemical PLAN 1-Review MRI brain 2- Review echo/cardiac monitering 3- BP<150/80 4- ASA 325 mg daily and lipitor 40 mg daily 5-avoid smoking and alcohol will follow
[2021-06-29 12:04] LABS: Bilirubin,Urine NEG (Negative); Blood,Urine NEG (Negative); Color,Urine Yellow (Yellow); Protein,Urine <15 mg/dL mg/dL (Negative); Urobilinogen,Urine < 2.0 mg/dL (<2.0)
[2021-06-29 12:11] LABS: RBC,Urine < 1.0 /HPF (0.0-6.0); WBC,Urine < 1.0 /HPF (0.0-6.0)
[2021-06-29] MEDS: HEPARIN 5,000 UNIT/1 ML VIAL SUB-Q SCH ×2 (13:58→22:28)
[2021-06-29] MEDS: ASPIRIN EC 325 MG TAB PO SCH (13:59)
--- NOTE | 2021-06-29 20:16 | Progress Note ---
Assessment and Plan Assessment and plan: 54-year-old male without significant past medical history presents with a left facial droop, speech disturbance and left-sided weakness. Patient woke up at 3 AM and when Tried to use the bathroom he had difficulty getting out of bed and walking to the bathroom. Apparently fell while going to the lab since 6 AM patient noted weakness in the left upper extremity and left lower extremity. Patient had difficulty walking. Patient came by EMS and code stroke was activated. Systolic blood pressure was high as per EMS in the range of 190s. No significant past medical history. Has not seen any physician in the last few years. 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 (1) Acute CVA (cerebrovascular accident) Current Visit: Yes Status: Acute Plan to address problem: CVA protocol MRI brain and echocardiogram ordered Physical therapy and Occupational Therapy requested Neurology consulted and following Patient is outside the window for TPA Aspirin 325 mg to be initiated High-dose statins initiated Acute neurological symptoms are mostly resolved, gait normalized Everything MRI and echocardiogram reports. (2) Hypertension Current Visit: Yes Status: Acute Qualifiers: Hypertension type: primary hypertension Qualified Code(s): I10 - Essential (primary) hypertension Plan to address problem: Newly diagnosed hypertension Patient never had hypertension for long time Did not seek any medical attention for the last few years Patient initiated on losartan and Coreg IV hydralazine as needed (3) borderline hyperglycemia/glucose intolerance, morbid obesity Current Visit: Yes Status: Acute Plan to address problem: Borderline fasting hyperglycemia Hemoglobin A1c 6.2 Start Metformin once in the evening Advised to lose weight aggressively. (4) Anemia Current Visit: Yes Status: Chronic Qualifiers: Anemia type: iron deficiency Plan to address problem: Microcytosis present Check iron level (5) DVT prophylaxis Current Visit: Yes Status: Acute Plan to address problem: On heparin and GI prophylaxis Disposition: Acute neurological symptoms mostly resolved. Gait normalized. MRI could not be performed during the weekend. Echo and MRI reports pending. Expected discharge in a.m. Discussed with the patient. History Interval history: Acute neurological symptoms are mostly resolved. Gait much improved. Vital signs stable. Awaiting MRI and echo reports. Hospitalist Physical - Constitutional Vitals: Temp Pulse Resp BP Pulse Ox 98.6 F 79 18 133/87 98 06/29/21 15:49 06/29/21 15:49 06/29/21 15:49 06/29/21 15:49 06/29/21 15:49 General appearance: Present: no acute distress, well-nourished, obese - EENT Eyes: Present: PERRL, EOM intact ENT: hearing intact, clear oral mucosa - Neck Neck: Present: supple - Respiratory Respiratory effort: normal Respiratory: bilateral: CTA - Cardiovascular Rhythm: regular - Extremities Extremities: No edema - Abdominal General gastrointestinal: soft, non-tender - Integumentary Integumentary: Absent: rash - Psychiatric Psychiatric: appropriate mood/affect - Neurologic Neurologic: other (Alert and oriented. Normal cognition. Speech disturbance and left-sided weakness now resolved. Stable gait.) HEART Score - HEART Score Age: 45-65 Risk factors: 1-2 risk factors Troponin: Troponin T < 0.010 ng/mL (0.00-0.029) 06/27/21 10:06 Troponin: < normal limit - Critical Actions Critical Actions: 0-3 pts:0.9-1.7%risk of adverse cardiac event.Candidate for discharge Results - Labs CBC & Chem 7: 06/28/21 05:14 06/28/21 05:14 Labs: Laboratory Last Values WBC 6.2 K/mm3 (4.5-11.0) 06/28/21 05:14 RBC 5.16 M/mm3 (3.65-5.03) H 06/28/21 05:14 Hgb 12.7 gm/dl (11.8-15.2) 06/28/21 05:14 Hct 40.3 % (35.5-45.6) 06/28/21 05:14 MCV 78 fl (84-94) L 06/28/21 05:14 MCH 25 pg (28-32) L 06/28/21 05:14 MCHC 32 % (32-34) 06/28/21 05:14 RDW 14.8 % (13.2-15.2) 06/28/21 05:14 Plt Count 223 K/mm3 (140-440) 06/28/21 05:14 Lymph % (Auto) 40.6 % (13.4-35.0) H 06/28/21 05:14 [place] % (Auto) 7.5 % (0.0-7.3) H 06/28/21 05:14 Eos % (Auto) 1.1 % (0.0-4.3) 06/28/21 05:14 Baso % (Auto) 0.7 % (0.0-1.8) 06/28/21 05:14 Lymph # (Auto) 2.5 K/mm3 (1.2-5.4) 06/28/21 05:14 [place] # (Auto) 0.5 K/mm3 (0.0-0.8) 06/28/21 05:14 Eos # (Auto) 0.1 K/mm3 (0.0-0.4) 06/28/21 05:14 Baso # (Auto) 0.0 K/mm3 (0.0-0.1) 06/28/21 05:14 Seg Neutrophils % 50.1 % (40.0-70.0) 06/28/21 05:14 Seg Neutrophils # 3.1 K/mm3 (1.8-7.7) 06/28/21 05:14 PT 13.1 Sec. (12.2-14.9) 06/27/21 11:05 INR 0.89 (0.87-1.13) 06/27/21 11:05 APTT 25.8 Sec. (24.2-36.6) 06/27/21 11:05 Thrombin Time 18.6 Sec. (15.1-19.6) 06/27/21 11:05 Sodium 143 mmol/L (137-145) 06/28/21 05:14 Potassium 4.1 mmol/L (3.6-5.0) 06/28/21 05:14 Chloride 106.5 mmol/L (98-107) 06/28/21 05:14 Carbon Dioxide 24 mmol/L (22-30) 06/28/21 05:14 Anion Gap 17 mmol/L 06/28/21 05:14 BUN 11 mg/dL (9-20) 06/28/21 05:14 Creatinine 1.2 mg/dL (0.8-1.3) 06/28/21 05:14 Estimated GFR > 60 ml/min 06/28/21 05:14 BUN/Creatinine Ratio 9 % 06/28/21 05:14 Glucose 118 mg/dL (75-100) H 06/28/21 05:14 Hemoglobin A1c 6.2 % (4-6) H 06/29/21 04:34 Calcium 8.8 mg/dL (8.4-10.2) 06/28/21 05:14 Total Bilirubin 0.50 mg/dL (0.1-1.2) 06/28/21 05:14 AST 21 units/L (5-40) 06/28/21 05:14 ALT 26 units/L (7-56) 06/28/21 05:14 Alkaline Phosphatase 89 units/L (35-129) 06/28/21 05:14 Troponin T < 0.010 ng/mL (0.00-0.029) 06/27/21 10:06 NT-Pro-B Natriuret Pep 46.41 pg/mL (0-900) 06/27/21 10:06 Total Protein 7.4 g/dL (6.3-8.2) 06/28/21 05:14 Albumin 4.0 g/dL (3.9-5) 06/28/21 05:14 Albumin/Globulin Ratio 1.2 % 06/28/21 05:14 Triglycerides 67 mg/dL (2-149) 06/29/21 04:34 Cholesterol 178 mg/dL (50-199) 06/29/21 04:34 LDL Cholesterol Direct 113 mg/dL (50-130) 06/29/21 04:34 HDL Cholesterol 50 mg/dL (40-59) 06/29/21 04:34 Cholesterol/HDL Ratio 3.56 % 06/29/21 04:34 Urine Color Yellow (Yellow) 06/29/21 10:23 Urine Turbidity Clear (Clear) 06/29/21 10:23 Urine pH 5.0 (5.0-7.0) 06/29/21 10:23 Ur Specific [place] 1.025 (1.003-1.030) 06/29/21 10:23 Urine Protein <15 mg/dl mg/dL (Negative) 06/29/21 10:23 Urine Glucose (UA) Neg mg/dL (Negative) 06/29/21 10:23 Urine Ketones Neg mg/dL (Negative) 06/29/21 10:23 Urine Blood Neg (Negative) 06/29/21 10:23 Urine Nitrite Neg (Negative) 06/29/21 10:23 Urine Bilirubin Neg (Negative) 06/29/21 10:23 Urine Urobilinogen < 2.0 mg/dL (<2.0) 06/29/21 10:23 Ur Leukocyte Esterase Neg (Negative) 06/29/21 10:23 Urine WBC (Auto) < 1.0 /HPF (0.0-6.0) 06/29/21 10:23 Urine RBC (Auto) < 1.0 /HPF (0.0-6.0) 06/29/21 10:23 U Epithel Cells (Auto) < 1.0 /HPF (0-13.0) 06/29/21 10:23 [place]/IV: Voiding Method Toilet Active Medications - Current Medications Current Medications: Generic Name Dose Route Start Last Admin Trade Name Freq PRN Reason Stop Dose Admin Acetaminophen 650 mg 06/27/21 17:26 Acetaminophen 325 Mg Tab PO Q4H PRN Pain MILD(1-3)/Fever >100.5/WHITE Aspirin 325 mg 06/29/21 14:00 06/29/21 13:59 Aspirin Ec 325 Mg Tab PO 325 mg QDAY JYOTI Administration Atorvastatin Calcium 40 mg 06/29/21 22:00 Atorvastatin 40 Mg Tab PO QHS JYOTI Heparin Sodium (Porcine) 5,000 unit 06/27/21 22:00 06/29/21 13:58 Heparin 5,000 Unit/1 Ml Vial SUB-Q 5,000 unit Q12HR JYOTI Administration Hydralazine HCl 10 mg 06/28/21 06:33 Hydralazine 20 Mg/1 Ml Inj IV Q3H PRN Blood Pressure > 160/100 Ondansetron HCl 4 mg 06/27/21 17:26 Ondansetron 4 Mg/2 Ml Inj IV Q8H PRN Nausea And Vomiting Sodium Chloride 10 ml 06/27/21 22:00 06/29/21 13:59 Sodium Chloride 0.9% 10 Ml Flush Syringe IV 10 ml BID JYOTI Administration Sodium Chloride 10 ml 06/28/21 06:49 Sodium Chloride 0.9% 10 Ml Flush Syringe IV PRN PRN LINE FLUSH
--- NOTE | 2021-06-29 23:52 | Vascular Lab Report ---
DUPLEX DOPPLER ULTRASOUND CAROTID, BILATERAL INDICATION / CLINICAL INFORMATION: stroke. COMPARISON: None available. FINDINGS: RIGHT CAROTID: No significant atherosclerotic disease - PLAQUE ESTIMATE (%): None. - CCA velocity: 71 cm/sec. - ICA peak systolic velocity: 68 cm/sec. - ICA/CCA PSV Ratio: Less than 2 Right Vertebral Artery: Antegrade flow. LEFT CAROTID: No significant atherosclerotic disease - [place]QUE ESTIMATE (%): None. - CCA velocity: 81 cm/sec. - ICA peak systolic velocity: 72 cm/sec. - ICA/CCA PSV Ratio: Less than 2 Left Vertebral Artery: Antegrade flow. IMPRESSION: 1. Right Internal Carotid Artery: Less than 50% diameter stenosis. 2. Left Internal Carotid Artery: Less than 50% diameter stenosis. Velocity criteria are extrapolated from diameter data as defined by the Society of Radiologists in Ul trasound Consensus Conference, Radiology 2003; 229;340-346. NO STENOSIS (NORMAL) - Plaque = none; ICA PSV < 125 cm/sec; ICA/CCA PSV Ratio < 2.0 <50% STENOSIS - Plaque < 50%; ICA PSV < 125 cm/sec; ICA/CCA PSV Ratio < 2.0 50-69% STENOSIS - Plaque > 50%; ICA PSV = 125-230 cm/sec; ICA/CCA PSV Ratio = 2.0-4.0 >70% BUT <100% STENOSIS - Plaque > 50%; ICA PSV > 230 cm/sec; ICA/CCA PSV Ratio > 4.0 NEAR OCCLUSION - Plaque = visible lumen; ICA PSV = high/low/none; ICA/CCA PSV Ratio = variable TOTAL OCCLUSION - Plaque = no lumen; ICA PSV = none; ICA/CCA PSV Ratio = N/A Signer Name: Jose Alfredo Dai Jr, MD Signed: 06/29/2021 9:16 AM Workstation Name: [id number]
--- NOTE | 2021-06-29 23:53 | Magnetic Resonance Report ---
. MR brain wo con INDICATION / CLINICAL INFORMATION: 55 years Male; stroke. TECHNIQUE: Multiplanar, multisequence MR images of the brain were obtained. Motion artifact present. COMPARISON: None available. FINDINGS: BRAIN / INTRACRANIAL CONTENTS: Small focus of acute/subacute ischemia seen in the posterior putamen o n the right, as well as in the posterior caudate. Otherwise, no acute hemorrhage, mass effect, midline shift, hydrocephalus, or acute, large territori al infarct. No chronic infarct or atrophy. There are mild areas of increased signal intensity on FLAIR imaging in the white matter of the cerebr al hemispheres. These are nonspecific findings and may be related to microangiopathy (hypertension, d iabetes, atherosclerosis), given the patient's age. CRANIOCERVICAL JUNCTION: No significant abnormality. VASCULAR FLOW-VOIDS: No significant abnormality. ORBITS: No significant abnormality of visualized orbits. Focal dehiscence of lamina papyracea seen on the left Jose of no clinical significance. SINUSES / MASTOIDS: Mild to moderate mucosal thickening in the ethmoids and right mastoid. ADDITIONAL FINDINGS: None. IMPRESSION: 1. Small area of acute/subacute ischemia in the corpus striatal region posteriorly on the left, as de scribed above. No signs of hemorrhagic transformation. Signer Name: Bruno Day MD, III Signed: 06/29/2021 4:15 PM Workstation Name: [id number]
[2021-06-30] MEDS: HEPARIN 5,000 UNIT/1 ML VIAL SUB-Q SCH (08:59)
[2021-06-30] MEDS: ASPIRIN EC 325 MG TAB PO SCH (09:00)
--- NOTE | 2021-06-30 10:05 | Progress Note ---
Assessment and Plan Assessment and Plan 54-year-old male without significant past medical history presents with a left facial droop and left arm weakness. Patient woke up at 3 AM Tried to use the bathroom he had difficulty getting out of bed and walking to the bathroom. Apparently fell while going to the lab since 6 AM patient noted weakness in the left upper extremity and left lower extremity. Patient had difficulty walking. Patient came by EMS and code stroke was activated. Systolic blood pressure was high as per EMS in the range of 190s. No significant past medical history. Has not seen any physician in the last few years. 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 No exacerbating or relieving factors. - Patient Problems # Acute CVA (cerebrovascular accident) -pt. is not candidate for TPA nor thrombectomy -CT brain is unremarkable -CTA brain and neck is unremarkable -started on ASA and Plavix -MRI brain is remarkable for right putamen acute CVA -LDL#113 -A1C#6.2 -Echo is remarkable for LVH,with Ef#55-60% -PT/ST evaluate -Initial NIh#2 today is# 0 # Hypertension -Newly diagnosed hypertension -Patient never had hypertension for long time -Did not seek any medical attention for the last few years -Patient initiated on losartan and Coreg -IV hydralazine as needed # Hyperglycemia -Borderline -Check hemoglobin A1c#6.2 -Metformin if necessary # Anemia -Microcytosis present -Check iron level # DVT prophylaxis -On heparin and GI prophylaxis Advance Directives: Yes (Full code) VTE prophylaxis?: Chemical PLAN 1- BP<150/80 2- ASA 325 mg daily and lipitor 40 mg daily 3-avoid smoking and alcohol 4- comply with medications and follow up with PCP will sign off Subjective Date of service: 06/30/21 Interval history: left side numbness and weakness resolved Objective - Vital Sign Vital Signs - 12hr 06/29/21 06/29/21 06/30/21 23:25 23:29 04:02 Temperature 97.7 F 98.2 F Pulse Rate 75 76 Respiratory 18 Rate Blood Pressure 138/84 Blood Pressure 132/80 [Right] O2 Sat by Pulse 98 96 Oximetry 06/30/21 06/30/21 06/30/21 06:00 08:21 08:49 Temperature 97.9 F Pulse Rate 82 77 77 Respiratory 20 Rate Blood Pressure 179/121 179/121 Blood Pressure [Right] O2 Sat by Pulse 98 Oximetry - General Apperance Constitutional: comfortable - EENT EENT: PERRL, mucous membranes moist - Respiratory Respiratory: chest non-tender, lungs clear, rhonchi - Cardiovascular Cardiovascular: regular rate, normal S1, normal S2 Extremities: no peripheral edema bilat, no clubbing, cyanosis - Gastrointestinal Gastrointestinal: normoactive bowel sounds - Integumentary Integumentary: normal - Neurologic Cranial nerve examination: PERRL, EOMI, intact Speech examination: intact Detailed motor examination: grossly full strength in - Laboratory Findings CBC and BMP: 06/28/21 05:14 06/28/21 05:14 Abnormal Lab Findings: Abnormal Labs 06/27/21 06/27/21 06/28/21 10:06 10:06 05:14 RBC 5.16 H Hgb 11.7 L MCV 78 L 78 L MCH 25 L 25 L Lymph % (Auto) 40.6 H [place] % (Auto) 7.5 H Glucose 138 H POC Glucose Hemoglobin A1c 06/28/21 06/29/21 06/30/21 05:14 04:34 08:17 RBC Hgb MCV MCH Lymph % (Auto) [place] % (Auto) Glucose 118 H POC Glucose 107 H Hemoglobin A1c 6.2 H
--- NOTE | 2021-06-30 10:55 | Discharge Summary ---
Providers - Providers Date of Admission: 06/27/21 17:26 Date of discharge: 06/30/21 Attending physician: JUWAN MIRANDA 06/27/21 17:27 Consult to Physician [CONS] Routine Comment: Consulting Provider: ИВАН HOOPER Physician Instructions: Reason For Exam: cva 06/28/21 06:49 Occupational Therapy Evaluate and Treat [CONS] Routine Comment: Reason For Exam: Neuro deficits Physical Therapy Evaluation and Treat [CONS] Routine Comment: Reason For Exam: Neuro deficits Primary care physician: DIGITAL ART DIRECTOR Hospitalization Reason for admission: CVA Condition: Stable Hospital course: 54-year-old male without significant past medical history presents with a left facial droop and left arm weakness. 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 The patient also weakness in the left upper extremity and left lower extremity. Patient had difficulty walking. Patient came by EMS and code stroke was activated. Systolic blood pressure was high as per EMS in the range of 190s. No significant past medical history. Has not seen any physician in the last few years. The patient was admitted with diagnosis of acute CVA, accelerated hypertension and hyperglycemia. Neurology saw the patient in consultation and patient was noted not to be a candidate for TPA or thrombectomy. CT brain, CTA brain and neck were unremarkable. Patient was started on aspirin and Plavix for secondary prevention. MRI brain was remarkab le for right putamen acute CVA. Echocardiogram was remarkable for LVH with an EF of 55-60%. PT/ST evaluation recommended no needs. Patient was initiated on losartan and Coreg for hypertension with good control.. Dedicated discharge time 32 minutes Disposition: 01 HOME / SELF CARE / HOMELESS Final Discharge Diagnosis (Prints w/discharge instructions): Acute right putamen CVA, accelerated hypertension, medical noncompliance Core Measure Documentation - Palliative Care Palliative Care/ Comfort Measures: Not Applicable - Core Measures Any of the following diagnoses?: none Exam - Constitutional Vitals: Temp Pulse Resp BP Pulse Ox 97.9 F 74 20 179/121 98 06/30/21 08:21 06/30/21 10:16 06/30/21 08:21 06/30/21 08:49 06/30/21 08:21 General appearance: Present: no acute distress, well-nourished - EENT Eyes: Present: PERRL ENT: hearing intact, clear oral mucosa - Neck Neck: Present: supple, normal ROM - Respiratory Respiratory effort: normal Respiratory: bilateral: CTA - Cardiovascular Heart Sounds: Present: S1 & S2. Absent: rub, click - Extremities Extremities: pulses symmetrical, No edema Peripheral Pulses: within normal limits - Abdominal General gastrointestinal: Present: soft, non-tender, non-distended, normal bowel sounds Male genitourinary: Present: normal - Integumentary Integumentary: Present: clear, warm, dry - Musculoskeletal Musculoskeletal: gait normal, strength equal bilaterally - Psychiatric Psychiatric: appropriate mood/affect, intact judgment & insight - Neurologic Neurologic: CNII-XII intact, moves all extremities Plan Activity: advance as tolerated Weight Bearing Status: Weight Bear as Tolerated Diet: low fat, low cholesterol, low salt Follow up with: PRIMARY CARE, [Primary Care Provider] - 7 Days JAYY BENTLEY MD [Staff Physician] - 7 Days Prescriptions: Aspirin EC [Ecotrin] 325 mg PO QDAY #30 tablet metFORMIN XR [Glucophage XR] 500 mg PO QPMDIAB #30 tablet AtorvaSTATin [Lipitor] 40 mg PO QHS #30 tablet NIFEdipine XL [Procardia Xl] 60 mg PO Q12HR #60 tab
[2021-06-30] MEDS ORDERED: NIFEdipine XL 60 MG TAB PO SCH ×3 (12:00→22:00)
[2021-06-30 15:41] VITALS: BP 153/104
[2021-06-30] MEDS ORDERED: metFORMIN XR 500MG TAB PO SCH (17:00)
== END 2021-06-30 15:45 | disposition home or self-care (01) | DRG 66 ==
LOC: ED 09:32 → 4A 17:26
PROVIDERS: ADMIT Internal Medicine; ATTEND Hospitalist
DX: I63.9 Cerebral infarction, unspecified (principal); I10 Essential (primary) hypertension; D64.9 Anemia, unspecified; E11.65 Type 2 diabetes mellitus with hyperglycemia; G83.24 Monoplegia of upper limb affecting left nondominant side; Z82.49 Family history of ischemic heart disease and other diseases of the circulatory system
CPT/HCPCS: 36415; 70450; 70496; 70498; 70551; 71045; 80053; 80061; 81001; 82962; 83036; 83880; 84484; 85025; 85610; 85670; 85730; 93005; 93010; 93306; 93880; G0378; Q0162; C8929; J0360; J1644; J7030; Q9967